=== PATIENT | male | born 1985 | race Caucasian/White ===

== ENCOUNTER → 2018-07-13 | Outpatient (CLI) | payer OTHER ==
[~2018-07-13] MED LIST: ALBU8.5H12 IH; ASPI-682 PO; GADOBENATE 529MG/1ML 15ML VIAL IVP ONE; IBUP-1618 PO
--- NOTE | 2018-07-13 16:39 | RADIOLOGY IMAGING REPORT ---
[place] [facility] [place]: Bob Dahl : 1985 MR: [id number] V: [id number] EXAM DATE: [id number] ORDERING PHYSICIAN: JULEE DAIGLE TECHNOLOGIST: Location: [facility] - [place] Patient: Bob Dahl : 1985 Visit/Account:[id number] Date of Sevice: 07/13/2018 EXAMINATION: MRI Brain without intravenous contrast MRI Brain with intravenous contrast, detailed medial temporal lobes HISTORY: Possible seizures. COMPARISON: None available. TECHNIQUE: Multi-planar, multi-sequence brain MRI was performed before and after IV gadolinium. Thin section imaging was performed in the oblique coronal plane through the hippocampi and medial tempora l lobes. CONTRAST: 15 mL of IV MultiHance FINDINGS: Detailed study medial temporal lobes: Medial temporal lobes: Negative. Hippocampi: Symmetric and normal in volume, signal intensity and internal architecture. Fornices and mammillary bodies are symmetric and normal bilaterally. Rest of brain: Brain volume: Normal. Sagittal midline structures: 1 cm pineal cyst. Ventricles: Negative. Acute ischemic changes: None. Hemorrhage: None. Masses / edema: None. Enhancement: Negative. Alexander-white: Negative. White matter: A few T2/FLAIR hyperintensities in the deep white matter bilaterally. Vessels: Negative. Extra-axial: Negative. Calvarium / scalp: Negative. Skull base: Negative. Visualized sinuses / orbits: Mild polypoid mucosal thickening in the maxillary sinuses. Moderate mu cosal thickening in the ethmoid air cells. Visualized upper neck: Negative. IMPRESSION: 1. No acute intracranial abnormality or mass. 2. Mild nonspecific chronic white matter disease. The differential diagnosis includes migraine synd romes, demyelinating disease, sequela of prior infection/inflammation/trauma, and chronic microvascul ar ischemia. 3. 1 cm pineal cyst. 4. Mild polypoid mucosal thickening in the maxillary sinuses. Moderate mucosal thickening in the et hmoid air cells. Report Dictated By: Donell Wilson MD at 07/13/2018 4:26 PM Report E-Signed By: Donell Wilson MD at 07/13/2018 4:34 PM [id number]
== END ==
LOC: MRI 13:32
PROVIDERS: ATTEND Nurse Practitioner Adult Health
DX: R56.9 Unspecified convulsions (principal)
CPT/HCPCS: 70553; A9577